=== PATIENT | male | born 1990 | race Two or more races ===

== ENCOUNTER 2020-10-17 05:24 | Emergency (ER) | payer SELFPAY ==
[~2020-10-17] VITALS: Ht 162.6 cm; Wt 72.7 kg
[2020-10-17] MEDS ORDERED: KETOROLAC 30 MG/ML VIAL. IVP ONE (06:00)
[2020-10-17] MEDS ORDERED: IV NORMAL SALINE 1000ML BAG 1,000 ML IV ONE (06:15)
[2020-10-17 06:20] LABS: CALCIUM 8.5 mg/dL (8.5-10.1); POTASSIUM 3.7 mmol/L (3.5-5.1)
[2020-10-17 06:27] LABS: ALBUMIN 4.1 g/dL (3.4-5.0); ALBUMIN/GLOBULIN RATIO 1.3 (1.0-1.7); TOTAL BILIRUBIN 0.5 mg/dL (0.2-1.0); TOTAL PROTEIN 7.3 g/dL (6.4-8.2)
[2020-10-17 06:38] LABS: BASO % 0 % (0-3); EOS # 0.1 x10^3/uL (0.0-0.7); EOS % 2 % (0-3); HEMATOCRIT 42.8 % (39.0-53.0); HEMOGLOBIN 14.7 g/dL (13.0-17.5); LYMPH # 2.3 x10^3/uL (1.0-4.8); LYMPH % 25 % (24-48); MEAN CORPUSCULAR HEMOGLOBIN 30 pg (25-35); MEAN CORPUSCULAR HGB CONC 34 g/dL (31-37); MEAN CORPUSCULAR VOLUME 87 fL (79-100); MONO # 0.7 x10^3/uL (0.0-1.1); MONO % 8 % (0-9); NEUT % 65 % (31-73); PLATELET COUNT 204 x10^3/uL (140-400); RED BLOOD COUNT 4.94 x10^6/uL (4.30-5.70); RED CELL DISTRIBUTION WIDTH 13.2 % (11.5-14.5); WHITE BLOOD COUNT 9.2 x10^3/uL (4.0-11.0)
--- NOTE | 2020-10-17 06:40 | RAD ---
CT abdomen and pelvis without contrast PQRS statement: CT scans at this facility use dose reduction including either automated exposure cont rol, iterative reconstructions, and /or weight based radiation dosing via mA and kV modification when appropriate to reduce radiation dose to as low as reasonably achievable. HISTORY: Right flank pain. Abdomen findings: Calcified granuloma right middle lobe. Liver, gallbladder, spleen, adrenal glands a nd pancreas are unremarkable. Nephrolithiasis. There is mild right renal hydronephrosis renal pelvis diameter 1 cm and perinephric edema associated with a ureteropelvic 4 mm obstructing calculus. Append ix is negative. No obstruction or inflammation GI tract. No abdominal fluid. No abdominal fluid. Subc entimeter mesenteric lymph nodes are noted. Pelvis findings: No bladder calculi. Prostate, rectum and bones are unremarkable. IMPRESSION: 1. Mild right renal hydronephrosis associated with a 4 mm obstructing ureteropelvic junction calculus . 2. Nephrolithiasis. 3. The appendix is negative. Electronically signed by: Chris Vyas MD (10/17/2020 6:38 AM) [facility]
[2020-10-17] MEDS ORDERED: MORPHINE SULFATE 10 MG/ML VIAL. IV ONE (06:45)
[2020-10-17] MEDS ORDERED: ONDANSETRON PF 4 MG/2 ML VIAL. IVP ONE (06:45)
[2020-10-17] MEDS ORDERED: ONDA4TAB12 PO (06:53)
[2020-10-17] MEDS ORDERED: TAMS0.4C97 PO (06:53)
[2020-10-17] MEDS ORDERED: HYDR-2761 PO (06:53)
--- NOTE | 2020-10-17 06:54 | PHYS DOC ---
Past Medical History Past Surgical History: No Surgical History Smoking Status: Never Smoker Alcohol Use: Occasionally General Adult EDM: Chief Complaint: FLANK PAIN HPI: HPI: 30-year-old male with no significant past medical history presents to the ED with spouse, (patient consents to his/her/their knowledge and involvement in pts' medical care), complains of right intermittent flank pain with associated nausea that started around midnight. Patient has not had this type of pain before. Has no routine primary care physician and has never been to the hospital, no past surgical history. Unable to urinate in ed. reports he voided prior to ED arrival. Denies any alcohol or drug use. Patient is Kinyarwanda-speaking and social work specialist services were used. Review of Systems: Review of Systems: Constitutional: Denies fever or chills. [] Eyes: Denies change in visual acuity. [] HENT: Denies nasal congestion or sore throat. [] Respiratory: Denies cough or shortness of breath. [] Cardiovascular: Denies chest pain or edema. [] GI: Denies abdominal pain, bloody stools or diarrhea. [] : Denies dysuria, hematuria or genital pain Musculoskeletal: Denies midline back pain or joint pain. [] Integument: Denies rash or diaphoresis Neurologic: Denies headache, focal weakness or sensory changes. [] Endocrine: Denies polyuria or polydipsia. [] Lymphatic: Denies swollen glands. [] Psychiatric: Denies depression or anxiety. [] Heart Score: C/O Chest Pain: No Risk Factors: Risk Factors: DM, Current or recent (<one month) smoker, HTN, HLP, family history of CAD, obesity. Risk Scores: Score 0 - 3: 2.5% MACE over next 6 weeks - Discharge Home Score 4 - 6: 20.3% MACE over next 6 weeks - Admit for Clinical Observation Score 7 - 10: 72.7% MACE over next 6 weeks - Early Invasive Strategies Current Medications: Current Medications Medications (Trade) Dose Ordered Sig/Brynn Start Time Stop Time Status Last Admin Dose Admin Ketorolac Tromethamine (Toradol 30mg Vial) 30 mg 1X ONCE 10/17/20 06:00 10/17/20 06:01 DC 10/17/20 06:08 30 MG Morphine Sulfate (Morphine Sulfate) 10 mg 1X ONCE 10/17/20 06:45 10/17/20 06:46 DC Ondansetron HCl (Zofran) 4 mg 1X ONCE 10/17/20 06:45 10/17/20 06:46 DC Sodium Chloride 1,000 ml @ 1,000 mls/hr 1X ONCE 10/17/20 06:15 10/17/20 07:14 10/17/20 06:15 1,000 MLS/HR Allergies: Allergies: Allergies Coded Allergies Type Severity Reaction Last Updated Verified No Known Drug Allergies 10/17/20 No Physical Exam: PE: Constitutional: Slightly uncomfortable, nontoxic-appearing, HENT: Normocephalic, atraumatic, slightly dry mucous membranes Eyes: EOMI, conjunctiva normal, no discharge. Neck: Normal range of motion, supple, Cardiovascular: S1/2 present, regular rhythm Lungs & Thorax: Speaking in full sentences, bilateral equal chest rise, no tachypnea or increased work of breathing Abdomen: soft, no tenderness, no rigidity or guarding Skin: Warm, dry, no erythema, no rash. [] Back: No midline tenderness, right CVA tenderness. [] Extremities: No tenderness, no cyanosis, no lower extremity edema Neurologic: Alert and oriented X 3, normal motor function, normal sensory function, no focal deficits noted. [] Psychologic: Affect normal, judgement normal, mood normal. [] Current Patient Data: Labs: Laboratory Tests Test 10/17/20 06:05 Sodium Level 139 mmol/L (136-145) Potassium Level 3.7 mmol/L (3.5-5.1) Chloride Level 104 mmol/L (98-107) Carbon Dioxide Level 28 mmol/L (21-32) Anion Gap 7 (6-14) Blood Urea Nitrogen 13 mg/dL (8-26) Creatinine 1.0 mg/dL (0.7-1.3) Estimated GFR (Cockcroft-Gault) 89.0 BUN/Creatinine Ratio 13 (6-20) Glucose Level 118 mg/dL (70-99) H Calcium Level 8.5 mg/dL (8.5-10.1) Total Bilirubin 0.5 mg/dL (0.2-1.0) Aspartate Amino Transferase (AST) 54 U/L (15-37) H Alanine Aminotransferase (ALT) 57 U/L (16-63) Alkaline Phosphatase 94 U/L (46-116) Total Protein 7.3 g/dL (6.4-8.2) Albumin 4.1 g/dL (3.4-5.0) Albumin/Globulin Ratio 1.3 (1.0-1.7) Laboratory Tests 10/17/20 06:05 Vital Signs: Vital Signs Date Time Temp Pulse Resp B/P (MAP) Pulse Ox O2 Delivery O2 Flow Rate FiO2 10/17/20 05:30 97.8 82 20 150/92 97 Room Air 97.8 EKG: EKG: [] Radiology/Procedures: Radiology/Procedures: [] IMAGING REPORT Signed PATIENT: RADHA COLEMANACCOUNT: [id number] : 1990 LOCATION: ER AGE: 30 SEX: M EXAM STATUS: REG ER ORD. PHYSICIAN: HARRIET MTZ DO REASON: right flank pain PROCEDURE: CT ABDOMEN PELVIS WO CONTRAST CT abdomen and pelvis without contrast PQRS statement: CT scans at this facility use dose reduction including either automated exposure control, iterative reconstructions, and /or weight based radiation dosing via mA and kV modification when appropriate to reduce radiation dose to as low as reasonably achievable. HISTORY: Right flank pain. Abdomen findings: Calcified granuloma right middle lobe. Liver, gallbladder, spleen, adrenal glands and pancreas are unremarkable. Nephrolithiasis. There is mild right renal hydronephrosis renal pelvis diameter 1 cm and perinephric edema associated with a ureteropelvic 4 mm obstructing calculus. Appendix is negative. No obstruction or inflammation GI tract. No abdominal fluid. No abdominal fluid. Subcentimeter mesenteric lymph nodes are noted. Pelvis findings: No bladder calculi. Prostate, rectum and bones are unremarkable. IMPRESSION: 1. Mild right renal hydronephrosis associated with a 4 mm obstructing ureteropelvic junction calculus. 2. Nephrolithiasis. 3. The appendix is negative. Electronically signed by: Laurent Vyas MD (10/17/2020 6:38 AM) [facility] – [place], [place] DICTATED and SIGNED BY: LAURENT VYAS MD DATE: 10/17/20 [id number] 0 Course & Med Decision Making: Course & Med Decision Making Pertinent Labs and Imaging studies reviewed. (See chart for details) Concern for right-sided flank pain in the setting of 4 mm mildly obstructive nephrolithiasis, 4 mm at [facility]. After morphine, pts' pain completely resolved. Will discharge home with strict ED return precautions were given for persistent pain, fever, intractable nausea or vomiting or flulike symptoms. Encouraged urgent outpatient follow-up with PMD and urology for definitive management. Life-threatening processes were considered but are low suspicion at this time, given history, physical exam and ED workup. Pt was educated on all prescription medications and adverse effects. All patient's questions were answered and pt was stable at time of discharge. Life/limb-threatening differential includes but is not limited to, aortic dissection/aneurysm, cauda equina syndrome, transverse myelitis, spinal cor d/epidural compression syndromes, discitis, spinal stenosis, epidural abscess or hematoma, osteomyelitis, disc herniation, surgical abdomen, stable or unstable fracture, renal/ureteral colic, sepsis, meningitis, musculoskeletal injury, traumatic injury, intraabdominal/retroperitoneal or pelvic bleeding. I have spoken with the patient and/or caregivers. I explained the patient's condition, diagnoses and treatment plan based on the information available to me at this time. I have answered the patient and/or caregiver's questions and addressed any concerns. The patient and/or caregivers have a good understanding of patient's diagnosis, condition and treatment plan as can be expected at this point. Vital signs have been stable. Patient's condition is stable and appropriate for discharge from the emergency department. Patient will pursue further outpatient evaluation with primary care physician or other designated or consulting physician as outlined in the discharge instructions. The patient and/or caregivers are agreeable to this plan of care and follow-up instructions have been explained in detail. The patient and/or caregivers have received these instructions in written form and have expressed an understanding of the discharge instructions. The patient and/or caregivers are aware that any significant change of condition or worsening of symptoms should prompt immediate return to this or the closest emergency department or call to 911. Allyson Disclaimer: Allyson Disclaimer: This electronic medical record was generated, in whole or in part, using a voice recognition dictation system. Departure Departure Impression: Primary Impression: Nephrolithiasis Additional Impression: Renal colic on right side Disposition: HOME / SELF CARE / HOMELESS Condition: STABLE Referrals: NO PCP (PCP) Navdeep un seguimiento con roe mdico de atencin primaria en 24 a 48 horas O SEGUIMIENTO CON MEDICINA FAMILIAR: [address], [address] [place] [address] Telfono: Patient Instructions: Diet for Kidney Stones, Kidney Stones Additional Instructions: SEGUIMIENTO CON UROLOGA: PARA EL TRATAMIENTO DEFINITIVO de clculos renales del lado derecho en los prximos 7 miek [facility] [place] [address] [place] [address] [place] [address] [address] [place], [place] [id number] [place] [address] [address], [address] [place] [address] [phone] Scripts Hydrocodone Bit/Acetaminophen (HYDROCODONE-APAP 5-325 ) 1 Tab Tablet 1 TAB PO PRN Q6HRS PRN for PAIN for 4 Days, #16 TAB 0 Refills Prov: HARRIET MTZ DO 10/17/20 Ondansetron (ONDANSETRON ODT) 4 Mg Tab.rapdis 1 TAB PO PRN Q6-8HRS, #20 TAB Prov: HARRIET MTZ DO 10/17/20 Tamsulosin Hcl (FLOMAX) 0.4 Mg Cap.er.24h 1 CAP PO DAILY for 14 Days, #14 CAP 0 Refills Prov: HARRIET MTZ DO 10/17/20 HARRIET MTZ DO Oct 17, 2020 06:54
[2020-10-17 08:26] VITALS: BP 120/69
== END 2020-10-17 08:16 | disposition home or self-care (01) ==
LOC: ER 05:24
DX: N13.2 Hydronephrosis with renal and ureteral calculous obstruction (principal); N23 Unspecified renal colic
CPT/HCPCS: 36415; 74176; 80053; 85025; 96361; 96374; 96375; 99285; J1885; J2270; J2405; J7030